=== PATIENT | female | born 1985 | race Caucasian/White ===

== ENCOUNTER 2016-10-13 20:13 | Emergency (ER) | payer MEDICAID ==
[~2016-10-13] VITALS: Ht 162.6 cm; Wt 69.4 kg
[2016-10-13 20:39] VITALS: BP 133/85
--- NOTE | 2016-10-13 20:50 | NUR ---
AMBULATED TO ER BED 1
--- NOTE | 2016-10-13 20:53 | NUR ---
DR. WARD AT PT BEDSIDE.
--- NOTE | 2016-10-13 20:54 | NUR ---
PATIENT PRESENTS TO ED WITH C.O. LT SIDE FACIAL DROOP STARTED TODAY. DENIES N/V/D; SKIN IS PINK/WARM/DRY; AAOX4 WITH EVEN AND STEADY GAIT; LUNGS CLEAR BL; HR EVEN AND REGULAR; PT DENIES ANY FEVER, CP, SOB, OR COUGH AT THIS TIME; PATIENT STATES PAIN OF 0/10 AT THIS TIME; VSS; PATIENT POSITIONED FOR COMFORT; HOB ELEVATED; BEDRAILS UP X2; BED DOWN. ER MD MADE AWARE OF PT STATUS.
[2016-10-13] MEDS ORDERED: methylPREDNISolone SS 125 MG in WATER STERILE 2 ML IM ONE (21:05)
[2016-10-13 21:43] VITALS: BP 120/90
--- NOTE | 2016-10-13 21:44 | NUR ---
Patient discharged with v/s stable. Written and verbal after care instructions given and explained. Patient alert, oriented and verbalized understanding of instructions. Ambulatory with steady gait. All questions addressed prior to discharge. ID band removed. Patient advised to follow up with PMD. Rx of ACYCLOVIR AND PREDNISONE given. Patient educated on indication of medication including possible reaction and side effects. Opportunity to ask questions provided and answered.
== END 2016-10-13 21:44 | disposition home or self-care (01) ==
LOC: MED 20:13
PROC: 3E033GC Introduction of Other Therapeutic Substance into Peripheral Vein, Percutaneous Approach (ICD-10-PCS; principal; 2016-10-13)
DX: G51.0 Bell's palsy (principal); R03.0 Elevated blood-pressure reading, without diagnosis of hypertension
CPT/HCPCS: 96372; 99283; J2930

== ENCOUNTER 2016-10-24 19:52 | Emergency (ER) | payer MEDICAID ==
[~2016-10-24] VITALS: Ht 154.9 cm; Wt 69.4 kg
[2016-10-24 19:57] VITALS: BP 118/78
[2016-10-24 20:33] VITALS: BP 118/78
--- NOTE | 2016-10-24 20:33 | NUR ---
PATIENT PRESENTS TO ED FOR MEDICATION REFILL . PT STATES SHE CURRENTLY HAS BELLS PALSY ON RT SIDE OF FACE THAT IS RADIATING TO THE BACK OF THE RT SIDE OF HEAD . DENIES N/V/D; SKIN IS PINK/WARM/DRY; AAOX4 WITH EVEN AND STEADY GAIT; LUNGS CLEAR BL; HR EVEN AND REGULAR; PT DENIES ANY FEVER, CP, SOB, OR COUGH AT THIS TIME; PATIENT STATES PAIN OF 3/10 AT THIS TIME; VSS; PATIENT POSITIONED FOR COMFORT; HOB ELEVATED; BEDRAILS UP X2; BED DOWN. ER MD MADE AWARE OF PT STATUS.
--- NOTE | 2016-10-24 20:33 | NUR ---
Patient ambulated to bed 07.
--- NOTE | 2016-10-24 20:39 | NUR ---
Dr. Pugh evaluating patient at bedside.
--- NOTE | 2016-10-24 20:53 | NUR ---
PER DR. TREVIZO, Patient discharged with v/s stable. Written and verbal after care instructions given and explained. Patient alert, oriented and verbalized understanding of instructions. Ambulatory with steady gait. All questions addressed prior to discharge. ID band removed. Patient advised to follow up with PMD. Rx of ARTIFICIAL TEARS AND PREDNISONE given. Patient educated on indication of medication including possible reaction and side effects. Opportunity to ask questions provided and answered.
== END 2016-10-24 20:53 | disposition home or self-care (01) ==
LOC: MED 19:52
DX: G51.0 Bell's palsy (principal)